=== PATIENT | female | born 1985 | race African-American/Black ===

== ENCOUNTER 2016-09-18 19:45 | Emergency (ER) | payer SELFPAY ==
[~2016-09-18] VITALS: Ht 162.6 cm; Wt 67.1 kg
[~2016-09-18 19:45] MED LIST: CYCL-36 PO; DICL50 PO; Z.0.NO CURRENT MEDS
[2016-09-18 19:56] VITALS: BP 134/96; PULSE 90; RESP 18; TEMP 99; O2SAT 100
[2016-09-18 20:23] VITALS: BP 134/96; PULSE 90; RESP 18; TEMP 99; O2SAT 100
[2016-09-18] MEDS ORDERED: SODIUM CHLOR 0.9% 1000 ML INJ 1,000 ML IV SCH (20:31)
[2016-09-18] MEDS ORDERED: ONDANSETRON HCL 4 MG/2 ML VIAL IVP ONE (20:45)
[2016-09-18] MEDS ORDERED: SODIUM CHLORIDE 0.9% FLUSH 10 ML FLUSH IV FLUSH PRN (20:45)
[2016-09-18] MEDS ORDERED: FAMOTIDINE 20 MG/2 ML VIAL IV PUSH ONE (20:45)
[2016-09-18 20:50] VITALS: RESP 18; O2SAT 99
[2016-09-18 20:52] LABS: AUTOMATED NEUTROPHIL # 2.6 TH/MM3 (1.8-7.7); BASOPHIL # 0.1 TH/MM3 (0-0.2); BASOPHIL % 1.2 % (0.0-2.0); EOSINOPHIL % 0.8 % (0.0-4.0); HEMATOCRIT 39.8 % (35.0-46.0); LYMPH % 41.8 % (9.0-44.0); LYMPHOCYTE # 2.3 TH/MM3 (1.0-4.8); MEAN CELL VOLUME 80.3 FL (80.0-100.0); MEAN CORPUSCULAR HEMOGLOBIN 26.3 PG (27.0-34.0); MEAN CORPUSCULAR HGB CONC 32.8 % (32.0-36.0); MONO % 8.4 % (0.0-8.0); NEUT % 47.8 % (16.0-70.0); PLATELET COUNT 167 TH/MM3 (150-450); RED BLOOD COUNT 4.96 MIL/MM3 (4.00-5.30); RED CELL DISTRIBUTION WIDTH 14.7 % (11.6-17.2); WHITE BLOOD COUNT 5.5 TH/MM3 (4.0-11.0)
[2016-09-18 20:58] VITALS: BP 116/65; PULSE 76; RESP 18; O2SAT 100
[2016-09-18 21:03] LABS: POTASSIUM 3.8 MEQ/L (3.5-5.1)
[2016-09-18 21:07] LABS: BICARBONATE 23.3 MEQ/L (21.0-32.0)
[2016-09-18 21:09] LABS: HEMO FLAGS AUTO DIFF
[2016-09-18 21:11] LABS: INDIRECT BILIRUBIN 0.2 MG/DL (0.0-0.8); TOTAL BILIRUBIN ADULT 0.3 MG/DL (0.2-1.0)
[2016-09-18 21:13] LABS: BLOOD, URINE TRACE (NEG); GLUCOSE,URINE NEG (NEG); KETONE, URINE TRACE mg/dL (NEG); NITRITE,URINE NEG (NEG)
[2016-09-18 21:19] LABS: URINE COLOR YELLOW (YELLW/STRAW)
[2016-09-18 21:20] LABS: RBC, URINE 0-3 /hpf (0-3); SQUAMOUS EPITHELIAL CELL URINE 0-5 /hpf (0-5); WBC, URINE 0-2 /hpf (0-5)
[2016-09-18 21:21] LABS: COMMENT (UR) CULT NOT INDICATED; CULTURE IF INDICATED CULT NOT INDICATED
[2016-09-18 21:34] LABS: OVALOCYTES 1+ (NORMAL); SCAN/DIFF AUTO DIFF CONFIRMED
--- NOTE | 2016-09-18 21:46 | PD ---
HPI Chief Complaint: GI Complaint Time Seen by Provider: 20:27 Travel History International Travel<30 days: No Contact w/Intl Traveler<30days: No Traveled to known affect area: No History of Present Illness HPI Patient is a 30-year-old female comes in complaining of a "weakness in her stomach." She says she has had this for about the past 10 days. She denies any pain, but says it feels like she has a stomach flu across the middle of her abdomen. She says she was concerned because she looked on the Internet and thought she might be having a gallbladder issue. She has not had any vomiting. She is having normal bowel movements. She has not had any fever or chills. She denies any dysuria. FORMERLY [facility] Past Medical History Medical History: Denies Significant Hx Diminished Hearing: No Immunizations Current: Yes Tetanus Vaccination: < 5 Years Influenza Vaccination: No ?: Unknown LMP: 08/23/16 : 0 Para: 0 Miscarriage: 0 : 0 Past Surgical History Surgical History: No Previous Surgery Social History Alcohol Use: Yes (1-2X WEEKLY) Tobacco Use: No Substance Use: Yes Allergies-Medications (Allergen,Severity, Reaction): Coded Allergies: No Known Allergies (Verified , 09/18/16) Reported Meds & Prescriptions Reported Meds & Active Scripts Active No Active Prescriptions or Reported Medications Review of Systems Except as stated in HPI: all other systems reviewed are Neg General / Constitutional: No: Fever, Chills HENT: No: Headaches, Lightheadedness Cardiovascular: No: Chest Pain or Discomfort Respiratory: No: Shortness of Breath Gastrointestinal: Positive: Abdominal Pain, No: Vomiting, Diarrhea Genitourinary: No: Urgency, Frequency, Dysuria Musculoskeletal: No: Myalgias, Edema Skin: No Rash, No Change in Pigmentation Neurologic: No: Weakness, Dizziness Physical Exam Narrative GENERAL: Awake and alert, in no acute distress. SKIN: Focused skin assessment warm/dry. HEAD: Atraumatic. Normocephalic. EYES: Pupils equal and round. No scleral icterus. ENT: Mucous membranes pink and moist. NECK: Trachea midline. No JVD. CARDIOVASCULAR: Regular rate and rhythm. No murmur appreciated. RESPIRATORY: No accessory muscle use. Clear to auscultation. Breath sounds equal bilaterally. GASTROINTESTINAL: Abdomen soft, non-tender, nondistended. No CVA tenderness MUSCULOSKELETAL: No obvious deformities. No clubbing. No cyanosis. No edema. NEUROLOGICAL: Awake and alert. No obvious cranial nerve deficits. Motor grossly within normal limits. Normal speech. PSYCHIATRIC: Appropriate mood and affect; insight and judgment normal. Data Data Last Documented VS Vital Signs Date Time Temp Pulse Resp B/P Pulse Ox O2 Delivery O2 Flow Rate FiO2 09/18/16 20:58 76 18 116/65 100 Room Air 09/18/16 20:23 99.0 Orders Basic Metabolic Panel (Bmp) (09/18/16 20:31) Complete Blood Count With Diff (09/18/16 20:31) Lipase (09/18/16 20:31) Urinalysis - C+S If Indicated (09/18/16 20:31) Ua Includes Microscopic (09/18/16 20:31) Iv Access Insert/Monitor (09/18/16 20:31) Ecg Monitoring (09/18/16 20:31) Oximetry (09/18/16 20:31) Ondansetron Inj (Zofran Inj) (09/18/16 20:45) Sodium Chlor 0.9% 1000 Ml Inj (Ns 1000 M (09/18/16 20:31) Sodium Chloride 0.9% Flush (Ns Flush) (09/18/16 20:45) Famotidine Inj (Pepcid Inj) (09/18/16 20:45) Ed Urine Pregnancytest Poc (09/18/16 20:31) Hepatic Functional Panel (09/18/16 20:31) Labs Laboratory Tests Test 09/18/16 09/18/16 20:35 20:45 Urine Color YELLOW Urine Turbidity CLEAR Urine pH 6.0 Urine Specific [place] 1.024 Urine Protein NEG mg/dL Urine Glucose (UA) NEG mg/dL Urine Ketones TRACE mg/dL Urine Occult Blood TRACE Urine Nitrite NEG Urine Bilirubin NEG Urine Leukocyte Esterase NEG Urine RBC 0-3 /hpf Urine WBC 0-2 /hpf Urine Squamous Epithelial 0-5 /hpf Cells Microscopic Urinalysis Comment CULT NOT INDICATED White Blood Count 5.5 TH/MM3 Red Blood Count 4.96 MIL/MM3 Hemoglobin 13.1 GM/DL Hematocrit 39.8 % Mean Corpuscular Volume 80.3 FL Mean Corpuscular Hemoglobin 26.3 PG Mean Corpuscular Hemoglobin 32.8 % Concent Red Cell Distribution Width 14.7 % Platelet Count 167 TH/MM3 Mean Platelet Volume 9.4 FL Neutrophils (%) (Auto) 47.8 % Lymphocytes (%) (Auto) 41.8 % Monocytes (%) (Auto) 8.4 % Eosinophils (%) (Auto) 0.8 % Basophils (%) (Auto) 1.2 % Neutrophils # (Auto) 2.6 TH/MM3 Lymphocytes # (Auto) 2.3 TH/MM3 Monocytes # (Auto) 0.5 TH/MM3 Eosinophils # (Auto) 0.0 TH/MM3 Basophils # (Auto) 0.1 TH/MM3 CBC Comment AUTO DIFF Differential Comment AUTO DIFF CONFIRMED Ovalocytes 1+ Sodium Level 145 MEQ/L Potassium Level 3.8 MEQ/L Chloride Level 110 MEQ/L Carbon Dioxide Level 23.3 MEQ/L Anion Gap 12 MEQ/L Blood Urea Nitrogen 8 MG/DL Creatinine 0.80 MG/DL Estimat Glomerular Filtration 103 ML/MIN Rate Random Glucose 79 MG/DL Calcium Level 9.1 MG/DL Total Bilirubin 0.3 MG/DL Direct Bilirubin 0.1 MG/DL Indirect Bilirubin 0.2 MG/DL Aspartate Amino Transf 14 U/L (AST/SGOT) Alanine Aminotransferase 16 U/L (ALT/SGPT) Alkaline Phosphatase 50 U/L Total Protein 8.2 GM/DL Albumin 4.5 GM/DL Lipase 67 U/L MDM Medical Decision Making Medical Screen Exam Complete: Yes Emergency Medical Condition: Yes Differential Diagnosis Cholecystitis versus GERD versus UTI versus viral illness Narrative Course Patient is a 30-year-old female comes in complaining of feeling "like she has a stomach virus." Exam shows no acute abnormalities, abdomen is nontender to palpation. IV established, labs sent. Patient given IV fluids and Zofran. Labs show no acute abnormalities. Liver function tests are within normal limits , bilirubin is within normal limits, white blood cell count is within normal limits. Patient has been able to eat and drink without any issues. She is advised of the results. She is advised to eat a bland diet and drink plenty of fluids. Advised follow-up with a primary care physician. Advised to return to the ED as needed for any worsening symptoms. Diagnosis Primary Impression: Nausea Referrals: [facility] call for appointment Patient Instructions: Abdominal Pain (ED), Acute Nausea and Vomiting (ED), General Instructions Additional Instructions: Drink plenty of fluids. He eat a bland diet. Follow-up with a primary care physician. Return to the emergency department as needed for any worsening symptoms. Scripts No Active Prescriptions or Reported Meds Disposition: 01 DISCHARGE HOME Condition: Stable Karen Yan MD Sep 18, 2016 21:46
[2016-09-18 21:55] VITALS: BP 118/62; PULSE 72; RESP 18; O2SAT 100
== END 2016-09-18 21:57 | disposition home or self-care (01) ==
LOC: PHED 19:45
DX: R11.0 Nausea (principal)
CPT/HCPCS: 80048; 80076; 81001; 83690; 84703; 85025; 96361; 96374; 96375; 99284; J2405; J7030